=== PATIENT | female | born 1960 | race Caucasian/White ===

== ENCOUNTER 2017-09-01 09:10 | Day surgery (SDC) | payer OTHER ==
[2017-08-31 11:25] LABS: HEMOGLOBIN 13.7 g/dL (12-16); MCH 30.2 pg (26.0-34.0); MCHC 32.6 g/dL (31.0-37.0); MCV 92.7 fL (80.0-100.0); MEAN PLATELET VOLUME 9.2 fL (7.4-10.4); RBC 4.53 10x6/uL (4.00-5.40); RDW 13.7 % (11.5-14.5)
[2017-08-31 11:42] LABS: CALC OSMOLALITY 274 mosm/kg (275-300); CALCIUM 9.4 mg/dL (8.5-10.1); CARBON DIOXIDE 24.5 mmol/L (21.0-32.0); CHLORIDE - SERUM 105 mmol/L (98-107); CREATININE - SERUM 0.7 mg/dL (0.6-1.3); GLUCOSE 94 mg/dL (74-106); POTASSIUM - SERUM 4.2 mmol/L (3.5-5.1); SODIUM 138 mmol/L (136-145); UREA NITROGEN 11 mg/dL (7-18); eGFR NON AFRICAN AMERICAN > 90 mL/min (90-120)
[~2017-09-01] VITALS: Ht 167.6 cm; Wt 100.2 kg
--- NOTE | ~2017-09-01 | OP ---
PATIENT NAME: BRIGID SOTOMAYOR MEDICAL RECORD: [id number] :62 [facility] ADMISSION DATE: SURGEON: MANOJ HARDING MD DATE OF OPERATION: 09/01/2017 PREOPERATIVE DIAGNOSES: Rotator cuff tear of the right shoulder, impingement syndrome of the right shoulder. POSTOPERATIVE DIAGNOSES: Rotator cuff tear of the right shoulder, impingement syndrome of the right shoulder. PROCEDURES: 1. Arthroscopic rotator cuff repair of the right shoulder. 2. Arthroscopic distal clavicle excision of the rotator cuff - 1 cm through separate incision. 3. Arthroscopic subacromial decompression, acromioplasty, and bursectomy. SURGEON: Manoj Harding MD ANESTHESIA: General. INTRAOPERATIVE COMPLICATIONS: None. SUMMARY OF PATHOLOGIC FINDINGS: The patient had full-thickness rotator cuff tearing consistent with preoperative MRI and diagnosis. The patient also had a substantial anterior acromial process with excoriation of the coracoacromial ligament. The patient also had grade IV chondromalacia of the distal clavicle. OPERATIVE SUMMARY IN DETAIL: After obtaining the appropriate preoperative orthopedic surgery consent as well as anesthetic consultation, evaluation, and clearance, the patient was brought to the operating room and placed on the operating table in supine position. After adequate general laryngeal mask airway anesthesia was administered, the patient was placed in the left lateral decubitus position. All pressure points were well padded to include down leg peroneal pad as well as axillary roll. The patient was held firmly to the operating table using the vacuum pack suction system. Right upper extremity and shoulder were then prepped and draped in routine sterile fashion. The arm was held in Arthrex arm holding device at 30 degrees of forward flexion, 30 degrees of abduction, 10 pounds of traction laterally. Arthroscopy was established in the glenohumeral joint from the posterior portal. Anterior partial was established through the anterior safe interval. Diagnostic arthroscopy revealed the above findings. Transarthroscopic rotator cuff portal was created for decortication of the articular side of the supraspinatus tendinous footprint in the area of the positive portion of the rotator cuff tear. Having completed this, attention was turned to the subacromial space. While in the subacromial space, Baker tissue ablation system was utilized to denude the undersurface of the acromion of all soft tissue elements and release the coracoacromial ligament. Having completed this, a 5-0 barrel bur was then used to perform acromioplasty at the level of acromioclavicular joint through separate anterior arthroscopic portal under direct arthroscopic visualization. Distal clavicle was excised for 1 cm. Having completed this, attention was turned to the rotator cuff. A FiberTape was placed in an inverted mattress fashion and anchored laterally with a 5.5 SwiveLock . A small second tear more close to the musculotendinous junction was reapproximated with both FiberTape and #2 FiberWire [id number]-rney using a knot pusher for reapproximation. The above OPERATIVE REPORT [id number] resulted in good reapproximation of the rotator cuff and good placement back to supraspinatus tendinous footprint. Having completed this, arthroscopy portals were closed in routine interrupted fashion using 4-0 Prolene. Sterile dressings were applied. The patient was awakened and taken to the recovery room in stable condition. All final instrument and sponge counts correct. TRANSINT:[id number] Voice Confirmation ID: [id number] DOCUMENT ID: [id number] MEHDI GARAY, MANOJ GONZALES at 1019 CC: [id number] DICTATION DATE: 09/01/17 1314 TUB PULLER: 09/01/17 1604 [facility] 09/01/17 [facility] [address] [place] [address]
[~2017-09-01 09:10] MED LIST: ALDACTONE25 MG PO; CARAFATE1 G PO; CYCLOBENZAPRINE10 MG PO; K-TAB10 MEQ PO; LASIX40 MG PO; LYRICA150 MG PO; MAG-OXIDE400 MG PO; NORCO 7.5/325 T1 TA1 PO; PROZAC20 MG PO; TOPROL XL25 MG PO
[2017-09-01] MEDS ORDERED: PROTONIX40 MG PO (10:06)
[2017-09-01] MEDS ORDERED: DEPO-PROVER150 MG/ML IM (10:07)
[2017-09-01] MEDS ORDERED: VITAMIN B-1000 MCG/M IM (10:08)
[2017-09-01 10:14] VITALS: BP 133/72; Ht 167.6 cm; Wt 100.2 kg
[2017-09-01 10:37] LABS: HCG URINE NEGATIVE (NEGATIVE)
[2017-09-01] MEDS ORDERED: HYDROCODONE-APA1 TAB PO (13:11)
== END 2017-09-01 15:30 | disposition home or self-care (01) ==
LOC: D.OPS 09:10 → D.PAN 11:15 → D.OPS 12:55 → D.PAN 14:30 → D.OPS 14:30
PROVIDERS: Anesthesiology; Orthopaedic Surgery
DX: M75.101 Unspecified rotator cuff tear or rupture of right shoulder, not specified as traumatic (principal); M25.811 Other specified joint disorders, right shoulder; I10 Essential (primary) hypertension; K21.9 Gastro-esophageal reflux disease without esophagitis; G47.30 Sleep apnea, unspecified; E66.01 Morbid (severe) obesity due to excess calories; Z01.812 Encounter for preprocedural laboratory examination

== ENCOUNTER 2018-05-22 08:00 | Outpatient (CLI) | payer OTHER ==
[2017-09-01 10:14] VITALS: BMI 35.7
[~2018-05-22 08:00] MED LIST changes: +DEPO-PROVER150 MG/ML IM; +HYDROCODONE-APA1 TAB PO; +PROTONIX40 MG PO; +VITAMIN B-1000 MCG/M IM
== END 2018-05-22 09:00 | disposition home or self-care (01) ==
LOC: D.MAMMO 08:00
DX: Z12.31 Encounter for screening mammogram for malignant neoplasm of breast (principal)